=== PATIENT | female | born 1940 | race Caucasian/White ===

== ENCOUNTER 2020-11-22 17:32 | Emergency (ER) | payer OTHER, SELFPAY ==
--- NOTE | ~2020-11-22 | XR_ITS ---
EXAMINATION: XR CHEST CLINICAL INFORMATION: Upper respiratory tract infection COMPARISON: None TECHNIQUE: Frontal view of the chest was obtained. FINDINGS: The heart and pulmonary vessels appear normal. No infiltrates, effusions or lung masses are seen. There appears to have been resection of the distal end of the left clavicle. The right AC joint appears normal. XR/XR chest 1V IMPRESSION: Unremarkable examination. No acute intrathoracic disease.
--- NOTE | 2020-11-22 17:35 | ECG_ITS ---
Test Reason : WEAKNESS Blood Pressure : / mmHG Vent. Rate : 101 BPM Atrial Rate : 101 BPM P-R Int : 170 ms QRS Dur : 068 ms QT Int : 340 ms P-R-T Axes : 047 -03 065 degrees QTc Int : 440 ms Sinus tachycardia Otherwise normal ECG No previous ECGs available Referred By: Generic ED Physician Electronically Signed By:Serge Lindo
[2020-11-22 17:39] VITALS: BP 186/78; PULSE 114; RESP 16; TEMP 38.1; O2SAT 99
[2020-11-22 17:50] LABS: Glucose, Whole Blood 151 mg/dL (60-115)
--- NOTE | 2020-11-22 18:18 | ED.URI ---
HPI - URI/Sore Throat General Chief Complaint: Upper Respiratory Symptoms Stated Complaint: HBS - HBP Time Seen by Provider: 11/22/20 18:16 Source: patient Mode of arrival: ambulatory Limitations: no limitations History of Present Illness HPI Narrative: 80-year-old female recently traveled from [place] to the [facility] presents for upper respiratory symptoms, cough, medication refill, and elevated blood sugar. She presents with her daughter, and appears to be in no distress. MD elicited complaint: fever, cough, sore throat and nasal congestion Onset (ago): day(s) Consistency: constant Severity: moderate Description of mucous: clear and watery Able to tolerate fluids by mouth: Yes Exacerbating factors: nothing Context: sick contacts and recent travel Associated symptoms: fever, chills, nasal congestion and cough Treatments prior to arrival: none Related Data Previous Rx's Medication Instructions Recorded levothyroxine 25 mcg PO DAILY #30 cap 11/22/20 Allergies Allergy/AdvReac Type Severity Reaction Status Date / Time No Known Allergies Allergy Verified 11/22/20 18:00 Review of Systems Review of Systems: Constitutional: positive Fever, positive Chills, positive fatigue, positive Malaise ENT/Mouth: positive sore throat, positive runny nose Eyes: No Discharge Cardiovascular: No Chest Pain, No SOB Respiratory: No Cough, No Sputum, No Wheezing, No Smoke Exposure, No Dyspnea Gastrointestinal: No Nausea, No Vomiting, No Diarrhea Genitourinary: no irregular bleeding, No Dysuria, No Urinary Frequency, No Hematuria, No Urinary Incontinence, No Urgency, No Flank Pain, Musculoskeletal: positive Myalgia Skin: No rash Neuro: No Headache Yes all other systems are reviewed and are negative [facility] Past Medical History Attestation statement: The following information was validated with the patient. Source: old records reviewed Medical History Diabetes High cholesterol HTN (hypertension) Thyroid activity decreased Social History Social History Alcohol intake: never Smoked in Last 30 Days: No Use of substances other than those prescribed or required for medical reasons: No Advance Directives: No Advance Directives Information Provided: Yes Physical Exam Vital Signs: Vital Signs: Last Vital Signs Temp 100.6 F H 11/22/20 17:39 Pulse 92 11/22/20 20:00 Resp 18 11/22/20 20:00 BP 186/78 H 11/22/20 17:39 Pulse Ox 99 11/22/20 17:39 Body Mass Index 0.8 Appearance: Alert. Oriented X3. Mild distress. Febrile Eyes: Pupils equal, round and reactive to light. ENT: Pharynx normal. Neck: Normal inspection. Neck supple. CVS: Normal heart rate and rhythm. Pulses normal. Respiratory: No respiratory distress. Breath sounds normal. Abdomen: Soft and nontender. Skin: Skin warm and dry. Normal skin color. Normal skin turgor. Extremities: No lower extremity edema. Neuro: No motor deficit. No sensory deficit. Course Course Course Narrative: 80-year-old female presents with COVID like symptoms recent travel from [place]. Plan of care is to test for COVID-19, will rule out ACS. She is asking for medication refill, will order levothyroxine 25 mcg for her. She does not have covering primary care provider. Patient is COVID positive. Troponin is 0. Patient's family and patient verbalized understanding of state and Federal guidelines for social isolation. Patient is not hypoxic, even unlabored respirations, able to speak in full sentences. No longer febrile at the time of my reassessment, 99.1 oral, blood pressure 177/78, heart rate 87. MDM - URI/Sore Throat MDM Narrative Medical decision making narrative: COVID-19 Differential Diagnosis Differential diagnosis: Likely upper respiratory infection, sinusitis, viral infection, bronchitis, influenza and pharyngitis Medical Records Attestation: I reviewed the patient's medical records. Lab Data Attestation: I reviewed the patient's lab results. Result diagrams: 11/22/20 17:52 11/22/20 17:52 Labs: Lab Results 11/22/20 11/22/20 11/22/20 Range/Units 17:44 17:52 17:52 WBC 8.9 (4.8-10.8) X10*3/uL RBC 4.42 (4.20-5.50) X10*6/uL Hgb 13.0 (12.0-16.0) g/dl Hct 39.3 (37-47) % MCV 88.9 (80-98) fL MCH 29.4 (27.0-33.0) pg MCHC 33.1 (31.0-35.0) g/dl RDW 12.8 (11.0-16.0) % Plt Count 315 (160-400) X10*3/uL MPV 9.5 (9.4-12.3) fL Immature Gran % (Auto) 0.7 H (0.0-0.4) % Neut % (Auto) 65.8 (45-73) % Lymph % (Auto) 19.1 L (20-40) % Ward % (Auto) 13.6 H (2-11) % Eos % (Auto) 0.5 (0-4) % Baso % (Auto) 0.3 (0-2) % Lymph # (Auto) 1.7 (1.2-4.9) X10*3/uL Ward # (Auto) 1.2 (0.1-1.2) X10*3/uL Eos # (Auto) 0.0 (0.0-0.4) X10*3/uL Baso # (Auto) 0.0 (0.0-0.2) X10*3/uL Abs Immat Gran (auto) 0.06 H (0.00-0.03) X10*3/uL Absolute Neuts (auto) 5.8 (2.0-8.3) X10*3/uL Absolute Nucleated RBC 0.000 (0.0-0.012) X10*3/uL Nucleated RBC % (auto) 0.0 (0.0-0.2) /100WBC Sodium (135-145) mmol/L Potassium (3.3-5.1) mmol/L Chloride (96-108) mmol/L Carbon Dioxide (22-29) mmol/L Anion Gap (12-20) BUN (9-16) mg/dL Creatinine (0.5-1.4) mg/dL Estim Creat Clear Calc Estimated GFR POC Glucose 151 H (60-115) mg/dL Random Glucose (60-115) mg/dL Calcium (8.4-10.2) mg/dL Troponin I High Sens (<3.5-17.0) ng/L Coronavirus (PCR) POSITIVE A (Negative) Influenza Type A (PCR) NEGATIVE (Negative) Influenza Type B (PCR) NEGATIVE (Negative) RSV RNA Qual (PCR) NEGATIVE (Negative) 11/22/20 11/22/20 Range/Units 17:52 17:52 WBC (4.8-10.8) X10*3/uL RBC (4.20-5.50) X10*6/uL Hgb (12.0-16.0) g/dl Hct (37-47) % MCV (80-98) fL MCH (27.0-33.0) pg MCHC (31.0-35.0) g/dl RDW (11.0-16.0) % Plt Count (160-400) X10*3/uL MPV (9.4-12.3) fL Immature Gran % (Auto) (0.0-0.4) % Neut % (Auto) (45-73) % Lymph % (Auto) (20-40) % Ward % (Auto) (2-11) % Eos % (Auto) (0-4) % Baso % (Auto) (0-2) % Lymph # (Auto) (1.2-4.9) X10*3/uL Ward # (Auto) (0.1-1.2) X10*3/uL Eos # (Auto) (0.0-0.4) X10*3/uL Baso # (Auto) (0.0-0.2) X10*3/uL Abs Immat Gran (auto) (0.00-0.03) X10*3/uL Absolute Neuts (auto) (2.0-8.3) X10*3/uL Absolute Nucleated RBC (0.0-0.012) X10*3/uL Nucleated RBC % (auto) (0.0-0.2) /100WBC Sodium 133 L (135-145) mmol/L Potassium 3.9 (3.3-5.1) mmol/L Chloride 98 (96-108) mmol/L Carbon Dioxide 21 L (22-29) mmol/L Anion Gap 18 (12-20) BUN 12 (9-16) mg/dL Creatinine 0.78 (0.5-1.4) mg/dL Estim Creat Clear Calc 1.4 Estimated GFR > 60 POC Glucose (60-115) mg/dL Random Glucose 146 H (60-115) mg/dL Calcium 9.2 (8.4-10.2) mg/dL Troponin I High Sens < 3.5 (<3.5-17.0) ng/L Coronavirus (PCR) (Negative) Influenza Type A (PCR) (Negative) Influenza Type B (PCR) (Negative) RSV RNA Qual (PCR) (Negative) Imaging Data Chest x-ray: Attestation: I personally reviewed and interpreted this imaging study as follows: Radiologist's impression: XR CHEST CLINICAL INFORMATION: Upper respiratory tract infection COMPARISON: None TECHNIQUE: Frontal view of the chest was obtained. FINDINGS: The heart and pulmonary vessels appear normal. No infiltrates, effusions or lung masses are seen. There appears to have been resection of the distal end of the left clavicle. The right AC joint appears normal. XR/XR chest 1V IMPRESSION: Unremarkable examination. No acute intrathoracic disease. ECG Data Attestation: I personally reviewed and interpreted this ECG as follows: ECG interpretation date: 11/22/20 ECG interpretation time: 17:54 Interpretation: Ventricular rate 101, CA interval 170, QRS 68, QT 340, QTC 440 sinus tachycardia otherwise normal EKG, no prior EKGs available as patient has not been to this hospital before. Scores Heart Score History: -1- moderately suspicious ECG: -0- normal Age: -2- > or = 65 Risk factory: -1- 1 or 2 risk factors Troponin: -0- < or = normal limit Score: 4 Risk: 16.6% Discharge Plan Discharge Clinical Impression: COVID-19, Medication refill Patient Disposition: Home, Self-Care Instructions: Medicine Refill (ED), COVID-19 (Coronavirus Disease 2019) (ED) Additional Instructions: Se le evaluaron para detectar s?ntomas respiratorios superiores consistentes con COVID-19. Bain prueba covid fue positiva. Por favor, mantenga las directrices de aislamiento social seg?n las regulaciones estatales y federales. Bain solicitado wang recarga para levotiroxina. Lo envi? a tu farmacia. Por favor, elly un seguimiento con el m?dico de atenci?n primaria. Charly por elegir gay departamento de emergencias para bain evaluaci?n. Por favor, elly un seguimiento con el m?dico de atenci?n primaria seg?n sea necesario. Regrese al servicio de emergencias para cualquier s?ntoma nuevo, preocupante o que empeore. You were evaluated for upper respiratory symptoms consistent with COVID-19. Your COVID test was positive. Please maintain social isolation guidelines per State and Federal regulations. Your requested a refill for levothyroxine. I sent that to your pharmacy. Please follow-up with primary care physician. Thank you for choosing this emergency department for evaluation. Please follow-up with primary care physician as needed. Return to the emergency department for any new, concerning, or worsening symptoms. Prescriptions: New levothyroxine 25 mcg capsule 25 mcg PO DAILY Qty: 30 RF: 3 Interventions: ED Discharge Assessment Last Done: 11/22/20 21:15 Discharge Date/Time: 11/22/20 21:17
[2020-11-22 18:38] LABS: MANUAL DIFF FLAG NO
[2020-11-22 18:57] LABS: Basophils Percent Auto 0.3 % (0-2); Eosinophils Percent Auto 0.5 % (0-4); Hematocrit 39.3 % (37-47); Imm Gran Abs Auto 0.06 X10*3/uL (0.00-0.03); Imm Gran Pct Auto 0.7 % (0.0-0.4); Lymphocytes Absolute Auto 1.7 X10*3/uL (1.2-4.9); Lymphocytes Percent Auto 19.1 % (20-40); Mean Corpuscular HGB Conc 33.1 g/dl (31.0-35.0); Mean Corpuscular Hemoglobin 29.4 pg (27.0-33.0); Mean Corpuscular Volume 88.9 fL (80-98); Mean Platelet Volume 9.5 fL (9.4-12.3); Monocytes Absolute Auto 1.2 X10*3/uL (0.1-1.2); Monocytes Percent Auto 13.6 % (2-11); Neutrophils Absolute Auto 5.8 X10*3/uL (2.0-8.3); Neutrophils Percent Auto 65.8 % (45-73); Platelet Count 315 X10*3/uL (160-400); Red Blood Count 4.42 X10*6/uL (4.20-5.50); Red Cell Distribution Width 12.8 % (11.0-16.0); White Blood Count 8.9 X10*3/uL (4.8-10.8)
[2020-11-22 19:02] LABS: Anion Gap 18 (12-20); Blood Urea Nitrogen 12 mg/dL (9-16); Calcium 9.2 mg/dL (8.4-10.2); Carbon Dioxide 21 mmol/L (22-29); Chloride 98 mmol/L (96-108); Creatinine Clr Calc Pharmacy 1.4; Estimated Glomerular Filt Rate > 60; Glucose Random 146 mg/dL (60-115); Potassium 3.9 mmol/L (3.3-5.1); Sodium 133 mmol/L (135-145)
[2020-11-22 19:15] LABS: Influenza A PCR NEGATIVE (Negative); Influenza B PCR NEGATIVE (Negative); Resp Syncy Virus RNA Qual PCR NEGATIVE (Negative); SARS COV2 PCR INHOUSE POSITIVE (Negative)
[2020-11-22] MEDS: Acetaminophen 325 MG TABLET 650 MG PO (19:21)
[2020-11-22] MEDS: Levothyroxine Sodium 25 MCG TABLET PO (19:21)
--- NOTE | 2020-11-22 19:25 | PC.NURSE ---
Pt awake and alert, sitting up in bed withdaughter at bedside. Pt breathing equal and unlabored. Vitals stable on monitor. Pt medicated at this time with PO Tylenol and Synthroid as ordered. Pt with mild back pain at this time. No acute distress, will continue to monitor
[2020-11-22 19:49] LABS: Troponin-I High Sensitivity < 3.5 ng/L (<3.5-17.0)
[2020-11-22 20:00] VITALS: PULSE 92; RESP 18
== END 2020-11-22 21:17 | disposition home or self-care (01) ==
PROVIDERS: Nurse Practitioner Family; Emergency Provider Emergency Medicine Emergency Medical Services
DX: U07.1 COVID-19 (principal); R50.9 Fever, unspecified; Z76.0 Encounter for issue of repeat prescription; Z79.899 Other long term (current) drug therapy
CPT/HCPCS: 0241U; 36415; 71045; 80048; 82947; 84484; 85025; 93005; 99284

== ENCOUNTER 2021-01-11 12:07 | Inpatient (IN) | payer OTHER, SELFPAY ==
[2021-01-11] VITALS (12 sets, daily range): BP systolic 114–166; BP diastolic 45–106; PULSE 77–95; RESP 15–20; TEMP 36.3–37.4; O2SAT 95–100; BMI 24.2; BMI 24.8
--- NOTE | ~2021-01-11 | CT_ITS ---
EXAMINATION: CT ABDOMEN AND PELVIS WITH CONTRAST CLINICAL INFORMATION: Right lower quadrant pain. Rule out acute appendicitis. COMPARISON: None TECHNIQUE: Multidetector volumetric images were obtained from the superior aspect of the liver through the pubic symphysis following administration 85 mL of Omnipaque 350 intravenous contrast. Sagittal and coronal reformatted images were obtained on the technologist's workstation. Oral contrast: No This CT examination was performed using dose optimization techniques as appropriate, variously including the following: *Automated exposure control *Adjustment of mA and/or kV according to patient size (this includes techniques or standardized protocols for targeted exams where dose is matched to indication/reason for exam; i.e. extremities or head) *Use of iterative reconstruction technique DLP: 372 mGy-cm FINDINGS: LUNG BASES: The visualized lung bases are unremarkable. LIVER, GALLBLADDER, AND BILIARY TREE: The liver is normal in size, shape, and attenuation. No focal hepatic lesion or biliary ductal dilatation is present. The gallbladder is distended and appears unremarkable. PANCREAS: Unremarkable. SPLEEN: Unremarkable. ADRENAL GLANDS: Unremarkable. KIDNEYS AND URETERS: The kidneys are normal in size, shape, and attenuation. No hydronephrosis, hydroureter, or calculi seen. No perinephric stranding. There is a punctate 3 mm hypodensity upper pole right renal cortex likely tiny cyst. A there is a 5 mm nonenhancing cyst upper pole left kidney BLADDER: Unremarkable. GASTROINTESTINAL TRACT: There is scattered stool and gas seen throughout the colon without any significant distention. The small bowel loops are normal caliber. The ileocecal junction is normal. The appendix is dilated with intraluminal gas and stool within measuring 1.2 cm. There is freddy appendix fat stranding consistent with acute appendicitis. There is no extraluminal gas or collection seen to suspect any perforation or abscess. ABDOMINAL WALL: No significant hernia is appreciated. LYMPH NODES: Normal. VASCULAR: Unremarkable. PELVIC VISCERA: The uterus is retroverted and appears unremarkable. There is no free air or free fluid seen. OSSEOUS STRUCTURES: No lytic or sclerotic process. There is mild ventral spondylosis. CT/CT abdomen pelvis w con IMPRESSION: Nonperforated Acute Appendicitis. Mild constipation Bilateral tiny renal cyst.
[2021-01-11 13:13] LABS: MANUAL DIFF FLAG NO
[2021-01-11 13:14] LABS: Basophils Percent Auto 0.2 % (0-2); Eosinophils Absolute Auto 0.1 X10*3/uL (0.0-0.4); Eosinophils Percent Auto 0.4 % (0-4); Hematocrit 37.8 % (37-47); Hemoglobin 12.6 g/dl (12.0-16.0); Imm Gran Abs Auto 0.05 X10*3/uL (0.00-0.03); Imm Gran Pct Auto 0.3 % (0.0-0.4); Lymphocytes Absolute Auto 2.8 X10*3/uL (1.2-4.9); Lymphocytes Percent Auto 16.9 % (20-40); Mean Corpuscular HGB Conc 33.3 g/dl (31.0-35.0); Mean Corpuscular Hemoglobin 29.8 pg (27.0-33.0); Mean Corpuscular Volume 89.4 fL (80-98); Mean Platelet Volume 8.7 fL (9.4-12.3); Monocytes Percent Auto 5.9 % (2-11); Neutrophils Absolute Auto 12.6 X10*3/uL (2.0-8.3); Neutrophils Percent Auto 76.3 % (45-73); Platelet Count 312 X10*3/uL (160-400); Red Blood Count 4.23 X10*6/uL (4.20-5.50); Red Cell Distribution Width 13.3 % (11.0-16.0); White Blood Count 16.5 X10*3/uL (4.8-10.8)
--- NOTE | 2021-01-11 13:40 | ED_ITS ---
HPI - Abdominal Pain General Chief Complaint: Abdominal Pain Stated Complaint: LOWER RT ABD PAIN Time Seen by Provider: 01/11/21 13:32 Source: patient Mode of arrival: ambulatory Limitations: no limitations History of Present Illness HPI narrative: 80-year-old female with a past medical history of diabetes, hypertension, hyperlipidemia, hypothyroidism here with complaints of right-sided abdominal pain for 3 days. Patient told that she has pain in the right lower abdomen which radiates to the right flank with associated nausea. No urinary symptoms. No fevers or chills. No vomiting. No diarrhea or constipation. Related Data Home Medications Medication Instructions Recorded Confirmed hydrochlorothiazide 25 mg PO DAILY 01/11/21 01/11/21 latanoprost 1 drp OPHTHALMIC (EYE) DAILY 01/11/21 01/11/21 metformin 1,000 mg PO BID 01/11/21 01/11/21 metformin 500 mg PO BID 01/11/21 01/11/21 Previous Rx's Medication Instructions Recorded levothyroxine 25 mcg PO DAILY #30 cap 11/22/20 Allergies Allergy/AdvReac Type Severity Reaction Status Date / Time No Known Allergies Allergy Verified 01/11/21 12:13 Review of Systems Review of Systems Yes all other systems are reviewed and are negative Constitutional: Reports no additional constitutional complaints, Denies body ache(s), Denies chills, Denies fever(s), Denies headache(s) and Denies weakness Eyes: Reports no additional eye complaints and Denies change in vision Reports system reviewed and no additional complaints, except as documented, Denies dizziness, Denies headache(s), Denies nasal congestion, Denies nasal discharge and Denies neck pain Cardiovascular: Reports no additional cardiovascular complaints, Denies chest pain, Denies leg edema and Denies dyspnea Respiratory: Reports no additional respiratory complaints, Denies cough and Denies dyspnea Gastrointestinal: Reports no additional gastrointestinal complaints, Reports abdominal pain, Denies diarrhea, Reports nausea and Denies vomiting Genitourinary: Reports no additional female genitourinary complaints and Denies urinary incontinence Musculoskeletal: Reports no additional musculoskeletal complaints, Reports back pain, Denies arthralgias, Denies joint swelling, Denies neck pain, Denies numbness and Denies tingling Skin/Breast: Reports system reviewed and no additional complaints, except as docu and Denies rash Reports system reviewed and no additional complaints, except as documented, Denies Abnormal speech present, Denies dizziness, Denies headache(s), Denies numbness, Denies tingling and Denies weakness Physical Exam Vital Signs: Vital Signs: Last Vital Signs Temp 97.3 F 01/11/21 12:10 Pulse 93 01/11/21 17:37 Resp 16 01/11/21 17:37 BP 166/58 H 01/11/21 17:37 Pulse Ox 98 01/11/21 17:37 Body Mass Index 24.2 Const: General: cooperative, healthy appearing, comfortable and no acute distress Orientation/consciousness: patient oriented x3 Limitations: no limitations HENMT: Head: Yes normal to inspection Ears: hearing grossly normal bilater ally General nose exam: Normal external nose present Face and sinus: Yes normal facial exam Mouth: Normal oral and palatal mucosa present Throat: Yes posterior oropharynx normal Eyes: General: appearance normal, both eyes and all related structures Pupils: Equal, round and reactive pupils present Neck: Neck: Yes normal visual inspection Chest: Chest palpation & inspection: normal inspection of the chest Resp: Effort & Inspection: normal respiratory effort Auscultation: clear to auscultation bilaterally Cardio: Rate: regular rate Rhythm: regular rhythm Peripheral pulses: Peripheral pulses 2+ throughout GI: Inspection: Yes normal to inspection Palpation (GI): Soft to palpation and Tenderness to palpation present (GI) (Mild tenderness in the right lower quadrant with some guarding. No rebound) Auscultation: normal bowel sounds : General: Yes no CVA tenderness Back/Spine/Pelvis: Back: no CVA tenderness Thoracic/Lumbar Spine: thoracic and lumbar spine normal to inspection Skin: General skin exam: no rashes or lesions noted Neuro: General: patient oriented x3, no focal motor deficits and normal sensation to monofilament Cranial nerves: Yes Equal, round and reactive pupils present Cognition (Neuro): normal cognition Speech: No Abnormal speech present Gait exam (Neuro): Normal gait present Motor exam (neuro): 5/5 motor strength present throughout Extrem: General: Yes normal to inspection Course Course Course Narrative: 80-year-old female here with right lower abdomen pain which radiates to the right flank x3 days with associated nausea. Exam no overt CVA tenderness. She does have some guarding and tenderness to the right lower quadrant. Will need labs, UA, CT A/P. 1650-CT shows acute appendicitis. The patient has a leukocytosis with a shift. At this time infection is suspected. Antibiotics ordered. Call out to surgery to discuss 1800-Patient seen by Dr Coleman who accepted admission. MDM - Abdominal Pain MDM Narrative Medical decision making narrative: Renal colic, acute appendicitis, UTI, pyelonephritis Medical Records Attestation: I reviewed the patient's medical records. Lab Data Attestation: I reviewed the patient's lab results. Result diagrams: 01/11/21 13:08 01/11/21 13:08 Labs: Lab Results 01/11/21 01/11/21 01/11/21 Range/Units 13:08 13:08 13:30 WBC 16.5 H (4.8-10.8) X10*3/uL RBC 4.23 (4.20-5.50) X10*6/uL Hgb 12.6 (12.0-16.0) g/dl Hct 37.8 (37-47) % MCV 89.4 (80-98) fL MCH 29.8 (27.0-33.0) pg MCHC 33.3 (31.0-35.0) g/dl RDW 13.3 (11.0-16.0) % Plt Count 312 (160-400) X10*3/uL MPV 8.7 L (9.4-12.3) fL Immature Gran % (Auto) 0.3 (0.0-0.4) % Neut % (Auto) 76.3 H (45-73) % Lymph % (Auto) 16.9 L (20-40) % [place] % (Auto) 5.9 (2-11) % Eos % (Auto) 0.4 (0-4) % Baso % (Auto) 0.2 (0-2) % Lymph # (Auto) 2.8 (1.2-4.9) X10*3/uL [place] # (Auto) 1.0 (0.1-1.2) X10*3/uL Eos # (Auto) 0.1 (0.0-0.4) X10*3/uL Baso # (Auto) 0.0 (0.0-0.2) X10*3/uL Abs Immat Gran (auto) 0.05 H (0.00-0.03) X10*3/uL Absolute Neuts (auto) 12.6 H (2.0-8.3) X10*3/uL Absolute Nucleated RBC 0.000 (0.0-0.012) X10*3/uL Nucleated RBC % (auto) 0.0 (0.0-0.2) /100WBC Hold Blue Top Sodium 136 (135-145) mmol/L Potassium 4.1 (3.3-5.1) mmol/L Chloride 101 (96-108) mmol/L Carbon Dioxide 26 (22-29) mmol/L Anion Gap 13 (12-20) BUN 10 (9-16) mg/dL Creatinine 0.74 (0.5-1.4) mg/dL Estim Creat Clear Calc 45.6 Estimated GFR > 60 Random Glucose 126 H (60-115) mg/dL Lactic Acid (0.5-2.0) mmol/L Calcium 9.6 (8.4-10.2) mg/dL Total Bilirubin (0.0-1.0) mg/dL Direct Bilirubin (0.0-0.5) mg/dL AST (5-31) U/L ALT (0-31) U/L Alkaline Phosphatase (39-117) U/L Total Protein (6.5-8.0) g/dL Albumin (3.5-5.0) g/dL Urine Color YELLOW Urine Appearance CLEAR Urine pH 5.5 (5.0-8.0) Ur Specific [place] 1.010 (1.005-1.025) Urine Protein NEG (NEG-TRACE) MG/DL Urine Glucose (UA) NEG (NEG) MG/DL Urine Ketones NEG (NEG) MG/DL Urine Blood 1+ H (NEG) Urine Nitrite NEG (NEG) Ur Leukocyte Esterase NEG (NEG) Urine RBC 1-4 (0) /HPF Urine WBC 0 (0-4) /HPF Ur Squamous Epith Cells TRACE /LPF Urine Bacteria NONE /LPF COVID-19 (CIELO) (Negative) COVID-19 Clin Com 01/11/21 01/11/21 01/11/21 Range/Units 14:01 14:01 15:00 WBC (4.8-10.8) X10*3/uL RBC (4.20-5.50) X10*6/uL Hgb (12.0-16.0) g/dl Hct (37-47) % MCV (80-98) fL MCH (27.0-33.0) pg MCHC (31.0-35.0) g/dl RDW (11.0-16.0) % Plt Count (160-400) X10*3/uL MPV (9.4-12.3) fL Immature Gran % (Auto) (0.0-0.4) % Neut % (Auto) (45-73) % Lymph % (Auto) (20-40) % [place] % (Auto) (2-11) % Eos % (Auto) (0-4) % Baso % (Auto) (0-2) % Lymph # (Auto) (1.2-4.9) X10*3/uL [place] # (Auto) (0.1-1.2) X10*3/uL Eos # (Auto) (0.0-0.4) X10*3/uL Baso # (Auto) (0.0-0.2) X10*3/uL Abs Immat Gran (auto) (0.00-0.03) X10*3/uL Absolute Neuts (auto) (2.0-8.3) X10*3/uL Absolute Nucleated RBC (0.0-0.012) X10*3/uL Nucleated RBC % (auto) (0.0-0.2) /100WBC Hold Blue Top SEE NOTE Sodium (135-145) mmol/L Potassium (3.3-5.1) mmol/L Chloride (96-108) mmol/L Carbon Dioxide (22-29) mmol/L Anion Gap (12-20) BUN (9-16) mg/dL Creatinine (0.5-1.4) mg/dL Estim Creat Clear Calc Estimated GFR Random Glucose (60-115) mg/dL Lactic Acid 0.9 (0.5-2.0) mmol/L Calcium (8.4-10.2) mg/dL Total Bilirubin 0.9 (0.0-1.0) mg/dL Direct Bilirubin 0.4 (0.0-0.5) mg/dL AST 19 (5-31) U/L ALT 12 (0-31) U/L Alkaline Phosphatase 77 (39-117) U/L Total Protein 7.7 (6.5-8.0) g/dL Albumin 4.2 (3.5-5.0) g/dL Urine Color Urine Appearance Urine pH (5.0-8.0) Ur Specific [place] (1.005-1.025) Urine Protein (NEG-TRACE) MG/DL Urine Glucose (UA) (NEG) MG/DL Urine Ketones (NEG) MG/DL Urine Blood (NEG) Urine Nitrite (NEG) Ur Leukocyte Esterase (NEG) Urine RBC (0) /HPF Urine WBC (0-4) /HPF Ur Squamous Epith Cells /LPF Urine Bacteria /LPF COVID-19 (CIELO) (Negative) COVID-19 Clin Com 01/11/21 Range/Units 17:04 WBC (4.8-10.8) X10*3/uL RBC (4.20-5.50) X10*6/uL Hgb (12.0-16.0) g/dl Hct (37-47) % MCV (80-98) fL MCH (27.0-33.0) pg MCHC (31.0-35.0) g/dl RDW (11.0-16.0) % Plt Count (160-400) X10*3/uL MPV (9.4-12.3) fL Immature Gran % (Auto) (0.0-0.4) % Neut % (Auto) (45-73) % Lymph % (Auto) (20-40) % [place] % (Auto) (2-11) % Eos % (Auto) (0-4) % Baso % (Auto) (0-2) % Lymph # (Auto) (1.2-4.9) X10*3/uL [place] # (Auto) (0.1-1.2) X10*3/uL Eos # (Auto) (0.0-0.4) X10*3/uL Baso # (Auto) (0.0-0.2) X10*3/uL Abs Immat Gran (auto) (0.00-0.03) X10*3/uL Absolute Neuts (auto) (2.0-8.3) X10*3/uL Absolute Nucleated RBC (0.0-0.012) X10*3/uL Nucleated RBC % (auto) (0.0-0.2) /100WBC Hold Blue Top Sodium (135-145) mmol/L Potassium (3.3-5.1) mmol/L Chloride (96-108) mmol/L Carbon Dioxide (22-29) mmol/L Anion Gap (12-20) BUN (9-16) mg/dL Creatinine (0.5-1.4) mg/dL Estim Creat Clear Calc Estimated GFR Random Glucose (60-115) mg/dL Lactic Acid (0.5-2.0) mmol/L Calcium (8.4-10.2) mg/dL Total Bilirubin (0.0-1.0) mg/dL Direct Bilirubin (0.0-0.5) mg/dL AST (5-31) U/L ALT (0-31) U/L Alkaline Phosphatase (39-117) U/L Total Protein (6.5-8.0) g/dL Albumin (3.5-5.0) g/dL Urine Color Urine Appearance Urine pH (5.0-8.0) Ur Specific [place] (1.005-1.025) Urine Protein (NEG-TRACE) MG/DL Urine Glucose (UA) (NEG) MG/DL Urine Ketones (NEG) MG/DL Urine Blood (NEG) Urine Nitrite (NEG) Ur Leukocyte Esterase (NEG) Urine RBC (0) /HPF Urine WBC (0-4) /HPF Ur Squamous Epith Cells /LPF Urine Bacteria /LPF COVID-19 (CIELO) Negative (Negative) COVID-19 Clin Com See Note Imaging Data CT scan - abdomen: Attestation: I personally reviewed and interpreted this imaging study as follows: Radiologist's impression: [address] [id number] Scan ReportSigned Patient: Nisha Floyd#: [id number]: 1940Acct:[id number]/Sex: 80 / FADM Date: 01/11/21Loc: [address]: Ordering Physician: MIGUELITO HAQUE NP Date of Service: 01/11/21 Procedure(s): CT abdomen pelvis w con Accession Number(s): [id number] cc: SHABNAM,MIGUELITO [employer] DEVELOPER~ EXAMINATION: CT ABDOMEN AND PELVIS WITH CONTRAST CLINICAL INFORMATION: Right lower quadrant pain. Rule out acute appendicitis. COMPARISON: None TECHNIQUE: Multidetector volumetric images were obtained from the superior aspect of the liver through the pubic symphysis following administration 85 mL of Omnipaque 350 intravenous contrast. Sagittal and coronal reformatted images were obtained on the technologist's workstation. Oral contrast: No This CT examination was performed using dose optimization techniques as appropriate, variously including the following: *Automated exposure control *Adjustment of mA and/or kV according to patient size (this includes techniques or standardized protocols for targeted exams where dose is matched to indication/reason for exam; i.e. extremities or head) *Use of iterative reconstruction technique DLP: 372 mGy-cm FINDINGS: LUNG BASES: The visualized lung bases are unremarkable. LIVER, GALLBLADDER, AND BILIARY TREE: The liver is normal in size, shape, and attenuation. No focal hepatic lesion or biliary ductal dilatation is present. The gallbladder is distended and appears unremarkable. PANCREAS: Unremarkable. SPLEEN: Unremarkable. ADRENAL GLANDS: Unremarkable. KIDNEYS AND URETERS: The kidneys are normal in size, shape, and attenuation. No hydronephrosis, hydroureter, or calculi seen. No perinephric stranding. There is a punctate 3 mm hypodensity upper pole right renal cortex likely tiny cyst. A there is a 5 mm nonenhancing cyst upper pole left kidney BLADDER: Unremarkable. GASTROINTESTINAL TRACT: There is scattered stool and gas seen throughout the colon without any significant distention. The small bowel loops are normal caliber. The ileocecal junction is normal. The appendix is dilated with intraluminal gas and stool within measuring 1.2 cm. There is freddy appendix fat stranding consistent with acute appendicitis. There is no extraluminal gas or collection seen to suspect any perforation or abscess. ABDOMINAL WALL: No significant hernia is appreciated. LYMPH NODES: Normal. VASCULAR: Unremarkable. PELVIC VISCERA: The uterus is retroverted and appears unremarkable. There is no free air or free fluid seen. OSSEOUS STRUCTURES: No lytic or sclerotic process. There is mild ventral spondylosis. CT/CT abdomen pelvis w con IMPRESSION: Nonperforated Acute Appendicitis. Mild constipation Bilateral tiny renal cyst. Discharge Plan Discharge Clinical Impression: Acute appendicitis, Leukocytosis Patient Disposition: Admitted As Inpatient Prescriptions: No Action latanoprost 0.005 % Drops 1 drp OPHTHALMIC (EYE) DAILY RF: 0 metformin 500 mg Tablet 500 mg PO BID RF: 0 metformin 1,000 mg Tablet 1,000 mg PO BID RF: 0 hydrochlorothiazide 25 mg Tablet 25 mg PO DAILY RF: 0 levothyroxine 25 mcg capsule 25 mcg PO DAILY Qty: 30 RF: 3 PMFSH Past Medical History Attestation statement: The following information was validated with the patient. Source: old records reviewed and nursing notes reviewed Medical History (Updated 01/11/21 @ 18:39 by Miguelito Haque NP) COVID-19 Diabetes High cholesterol HTN (hypertension) Thyroid activity decreased Social History Social History Alcohol intake: never Advance Directives: Yes Advance Directives Information Provided: Yes Advance Directives on File: No
[2021-01-11 13:41] LABS: Glucose Urine UA NEG (NEG); Leukocyte Esterase Urine NEG (NEG); Nitrite Urine NEG (NEG); PH 5.5 (5.0-8.0); Urine Blood 1+ (NEG); Urine Ketones NEG (NEG); Urine Protein NEG (NEG-TRACE)
[2021-01-11 13:42] LABS: Appearance Urine CLEAR; Color Urine YELLOW
[2021-01-11 13:48] LABS: Anion Gap 13 (12-20); Blood Urea Nitrogen 10 mg/dL (9-16); Calcium 9.6 mg/dL (8.4-10.2); Carbon Dioxide 26 mmol/L (22-29); Chloride 101 mmol/L (96-108); Creatinine Clr Calc Pharmacy 45.6; Estimated Glomerular Filt Rate > 60; Glucose Random 126 mg/dL (60-115); Potassium 4.1 mmol/L (3.3-5.1); Sodium 136 mmol/L (135-145)
[2021-01-11 13:56] LABS: Squamous Epithelial Cell Urine TRACE /LPF; WBC Urine 0 /HPF (0-4)
[2021-01-11 14:29] LABS: Lactic Acid 0.9 mmol/L (0.5-2.0)
[2021-01-11 15:31] LABS: Alanine Aminotransferase 12 U/L (0-31); Albumin Level 4.2 g/dL (3.5-5.0); Alkaline Phosphatase 77 U/L (39-117); Aspartate Amino Transferase 19 U/L (5-31); Bilirubin Direct 0.4 mg/dL (0.0-0.5); Bilirubin Total 0.9 mg/dL (0.0-1.0); Total Protein 7.7 g/dL (6.5-8.0)
[2021-01-11] MEDS: iohexoL 350 MG/ML 100 ML INFUS..BTL IV (16:28)
[2021-01-11] MEDS: Piperacillin Sodium/Tazobactam 3.375 GM in 0.9 % Sodium Chloride 50 ML IV (17:11)
[2021-01-11 17:54] LABS: COVID-19 Test Negative (Negative); IDNOW Serial# 9DD0AD1C
--- NOTE | 2021-01-11 18:06 | PC.NURSE ---
GI at bedside.
--- NOTE | 2021-01-11 18:22 | PM.HPGS ---
History of Present Illness History of Present Illness Date of Service: 01/11/21 Chief complaint: LOWER RT ABD PAIN Narrative: Nisah Cross is a 80 year old female presenting with a 3 day history of abdominal pain beginning in a periumbilical region and radiating to the right lower quadrant and back. The pain has been increasing in severity and is associated with nausea without vomiting, and anorexia. She denies fever, chills, diarrhea, constipation. Her past history is significant for diabetes, hypertension, hyperlipidemia, hypothyroidism. She denies cough, or shortness of breath. She presented to the emergency department was noted to be tender in the right lower [place] [address] of the abdomen and pelvis revealed a thickened and inflamed appendix suggestive of acute appendicitis. No free air or abscess could be identified. She is admitted to the surgical service for management of acute appendicitis. Review of Systems Review of Systems: Yes all other systems are reviewed and are negative Constitutional: Constitutional: Denies chills, Denies fever(s) and Reports poor appetite ENT: Denies dysphagia Cardiovascular: Cardiovascular: Denies chest pain, Denies rapid heart rate, Denies irregular heart rhythm and Denies dyspnea on exertion Respiratory: Respiratory: Denies chest congestion, Denies cough, Denies excessive phlegm production, Denies pain with cough and Denies dyspnea on exertion Gastrointestinal: Gastrointestinal: Reports abdominal pain, Denies bloating, Denies hematochezia, Denies change in bowel habits, Denies coffee ground emesis, Denies dysphagia, Reports nausea and Denies vomiting Genitourinary: Genitourinary: Reports no additional female genitourinary complaints Neurologic: Reports system reviewed and no additional complaints, except as documented Allergic/Immunologic: Allergic/Immunologic: Reports no additional allergic/immunologic complaints [facility] Past Medical History Medical History (Updated 01/11/21 @ 18:29 by Catracho Reyes MD) COVID-19 Diabetes High cholesterol HTN (hypertension) Thyroid activity decreased Social History Social History Alcohol intake: never Advance Directives: Yes Advance Directives Information Provided: Yes Advance Directives on File: No Meds Allergies Allergy/AdvReac Type Severity Reaction Status Date / Time No Known Allergies Allergy Verified 01/11/21 12:13 Active Medications: Current Medications Generic Name Dose Route Start Last Admin Trade Name Freq PRN Reason Stop Dose Admin Pharmacy Consult 1 each 01/11/21 16:52 Consult Rx Perform Med Rec MISCELLANE ONCE PRN Consult order Home Medications Medication Instructions Recorded Confirmed Last Taken Type hydrochlorothiazide 25 mg PO DAILY 01/11/21 01/11/21 Unknown History latanoprost 1 drp OPHTHALMIC (EYE) DAILY 01/11/21 01/11/21 Unknown History metformin 1,000 mg PO BID 01/11/21 01/11/21 Unknown History metformin 500 mg PO BID 01/11/21 01/11/21 Unknown History Physical Exam Vital Signs: Vital Signs: Last Vital Signs Temp 97.3 F 01/11/21 12:10 Pulse 93 01/11/21 17:37 Resp 16 01/11/21 17:37 BP 166/58 H 01/11/21 17:37 Pulse Ox 98 01/11/21 17:37 Body Mass Index 24.2 Const: General: cooperative, healthy appearing, comfortable, no acute distress, well developed and alert Neck: Neck: Yes normal visual inspection Resp: Effort & Inspection: normal respiratory effort, no cough, no stridor and not tachypneic Auscultation: no rhonchi and no wheezes Cardio: Jugular venous distension: no JVD Rate: regular rate Rhythm: regular rhythm GI: Palpation (GI): Soft to palpation, Tenderness to palpation present (GI) in the RLQ and at McBurney's point, no guarding, not rigid, no masses and Rebound tenderness present Percussion: Yes normal to percussion Rectal Exam - Female: deferred Skin: General skin exam: no rashes or lesions noted Extrem: General: Yes no clubbing, cyanosis or edema Results Results Labs: Short CBC 01/11/21 Range/Units 13:08 WBC 16.5 H (4.8-10.8) X10*3/uL Hgb 12.6 (12.0-16.0) g/dl Hct 37.8 (37-47) % Plt Count 312 (160-400) X10*3/uL BMP 01/11/21 13:08 Sodium 136 Potassium 4.1 Chloride 101 Carbon Dioxide 26 BUN 10 Creatinine 0.74 Calcium 9.6 Liver Function 01/11/21 Range/Units 15:00 Total Bilirubin 0.9 (0.0-1.0) mg/dL Direct Bilirubin 0.4 (0.0-0.5) mg/dL AST 19 (5-31) U/L ALT 12 (0-31) U/L Alkaline Phosphatase 77 (39-117) U/L Albumin 4.2 (3.5-5.0) g/dL Urine 01/11/21 Range/Units 13:30 Urine Color YELLOW Urine Appearance CLEAR Urine pH 5.5 (5.0-8.0) Ur Specific [place] 1.010 (1.005-1.025) Urine Protein NEG (NEG-TRACE) MG/DL Urine Glucose (UA) NEG (NEG) MG/DL Assessment and Plan (1) Acute appendicitis: Status: Acute 80-year-old female patient presenting with 3 day history of abdominal pain now located in the right lower quadrant with tenderness on examination in the right lower quadrant in localized rebound. Laboratories revealed WBC of 16.[address] of the abdomen is consistent with acute appendicitis. I discussed the findings in detail with the patient and her daughter. Although sometimes is could be treated with antibiotics, because of the markedly elevated WBC in the findings on CT I would recommend a laparoscopic or possible open appendectomy. After discussion of the procedure, risks, and alternatives, she consents to a laparoscopic or possible open appendectomy. She will be added onto the operative schedule for today. Procedures Date of Service Date of Service: 01/11/21
--- NOTE | 2021-01-11 19:04 | HO.ANESPROP2 ---
FORM[facility]LY [facility], LATER [facility] Active Problems Active Problems: All Active Problems (Updated 01/11/21 @ 18:39 by Rebecca Solano NP) Leukocytosis (Acute) Acute appendicitis (Acute) Past Medical History Medical History COVID-19 Diabetes High cholesterol HTN (hypertension) Thyroid activity decreased Social History Social History Alcohol intake: never Advance Directives: Yes Advance Directives Information Provided: Yes Advance Directives on File: No Meds Allergies Allergy/AdvReac Type Severity Reaction Status Date / Time No Known Allergies Allergy Verified 01/11/21 12:13 Active Medications: Current Medications Generic Name Dose Route Start Last Admin Trade Name Freq PRN Reason Stop Dose Admin Lactated Ringer's 1,000 mls @ 100 mls/hr 01/11/21 18:45 Lr IVCONT .Q10H MONIKA Ondansetron HCl 4 mg 01/11/21 18:32 Ondansetron Hcl 4 Mg/2 Ml Vial IVPUSH QID PRN Nausea Pharmacy Consult 1 each 01/11/21 16:52 Consult Rx Perform Med Rec MISCELLANE ONCE PRN Consult order Home Medications Medication Instructions Recorded Confirmed Last Taken Type latanoprost 1 drp OPHTHALMIC (EYE) DAILY 01/11/21 01/11/21 01/11/21 History metformin 500 mg PO BID 01/11/21 01/11/21 01/11/21 History Exam Exam Date and Time: January 11, 2021 190 Height,Weight and Vital Signs: Height 4 ft 11 in Weight 54.431 kg Last Vital Signs Temp 97.3 F 01/11/21 12:10 Pulse 93 01/11/21 17:37 Resp 16 01/11/21 17:37 BP 166/58 H 01/11/21 17:37 Pulse Ox 98 01/11/21 17:37 Pertinent Lab Results Pertinent Lab Results: Laboratory Tests 01/11/21 01/11/21 01/11/21 13:08 13:08 13:30 WBC 16.5 H RBC 4.23 Hgb 12.6 Hct 37.8 MCV 89.4 MCH 29.8 MCHC 33.3 RDW 13.3 Plt Count 312 MPV 8.7 L Immature Gran % (Auto) 0.3 Neut % (Auto) 76.3 H Lymph % (Auto) 16.9 L [place] % (Auto) 5.9 Eos % (Auto) 0.4 Baso % (Auto) 0.2 Lymph # (Auto) 2.8 [place] # (Auto) 1.0 Eos # (Auto) 0.1 Baso # (Auto) 0.0 Abs Immat Gran (auto) 0.05 H Absolute Neuts (auto) 12.6 H Absolute Nucleated RBC 0.000 Nucleated RBC % (auto) 0.0 Hold Blue Top Sodium 136 Potassium 4.1 Chloride 101 Carbon Dioxide 26 Anion Gap 13 BUN 10 Creatinine 0.74 Estim Creat Clear Calc 45.6 Estimated GFR > 60 Random Glucose 126 H Lactic Acid Calcium 9.6 Total Bilirubin Direct Bilirubin AST ALT Alkaline Phosphatase Total Protein Albumin Urine Color YELLOW Urine Appearance CLEAR Urine pH 5.5 Ur Specific [place] 1.010 Urine Protein NEG Urine Glucose (UA) NEG Urine Ketones NEG Urine Blood 1+ H Urine Nitrite NEG Ur Leukocyte Esterase NEG Urine RBC 1-4 Urine WBC 0 Ur Squamous Epith Cells TRACE Urine Bacteria NONE COVID-19 (CIELO) COVID-[place] 01/11/21 01/11/21 01/11/21 14:01 14:01 15:00 WBC RBC Hgb Hct MCV MCH MCHC RDW Plt Count MPV Immature Gran % (Auto) Neut % (Auto) Lymph % (Auto) [place] % (Auto) Eos % (Auto) Baso % (Auto) Lymph # (Auto) [place] # (Auto) Eos # (Auto) Baso # (Auto) Abs Immat Gran (auto) Absolute Neuts (auto) Absolute Nucleated RBC Nucleated RBC % (auto) Hold Blue Top SEE NOTE Sodium Potassium Chloride Carbon Dioxide Anion Gap BUN Creatinine Estim Creat Clear Calc Estimated GFR Random Glucose Lactic Acid 0.9 Calcium Total Bilirubin 0.9 Direct Bilirubin 0.4 AST 19 ALT 12 Alkaline Phosphatase 77 Total Protein 7.7 Albumin 4.2 Urine Color Urine Appearance Urine pH Ur Specific [place] Urine Protein Urine Glucose (UA) Urine Ketones Urine Blood Urine Nitrite Ur Leukocyte Esterase Urine RBC Urine WBC Ur Squamous Epith Cells Urine Bacteria COVID-19 (CIELO) COVID[facility]th[facility] 01/11/21 17:04 WBC RBC Hgb Hct MCV MCH MCHC RDW Plt Count MPV Immature Gran % (Auto) Neut % (Auto) Lymph % (Auto) [place] % (Auto) Eos % (Auto) Baso % (Auto) Lymph # (Auto) [place] # (Auto) Eos # (Auto) Baso # (Auto) Abs Immat Gran (auto) Absolute Neuts (auto) Absolute Nucleated RBC Nucleated RBC % (auto) Hold Blue Top Sodium Potassium Chloride Carbon Dioxide Anion Gap BUN Creatinine Estim Creat Clear Calc Estimated GFR Random Glucose Lactic Acid Calcium Total Bilirubin Direct Bilirubin AST ALT Alkaline Phosphatase Total Protein Albumin Urine Color Urine Appearance Urine pH Ur Specific [place] Urine Protein Urine Glucose (UA) Urine Ketones Urine Blood Urine Nitrite Ur Leukocyte Esterase Urine RBC Urine WBC Ur Squamous Epith Cells Urine Bacteria COVID-19 (CIELO) Negative COVID-19 Clin Com See Note Airway Mallampati Class: II TM Dist: >3cm Neck ROM: Full Denture: Upper Heart: RRR Lungs: CTA
--- NOTE | 2021-01-11 19:35 | P.CONAN_ITS ---
[facility] Active Problems Active Problems: All Active Problems (Updated 01/11/21 @ 18:39 by Rebecca conklin NP) Leukocytosis (Acute) Acute appendicitis (Acute) Past Medical History Medical History COVID-19 Diabetes High cholesterol HTN (hypertension) Thyroid activity decreased Social History Social History Alcohol intake: never Meds Allergies Allergy/AdvReac Type Severity Reaction Status Date / Time No Known Allergies Allergy Verified 01/11/21 12:13 Home Medications Medication Instructions Recorded Confirmed Last Taken Type latanoprost 1 drp OPHTHALMIC (EYE) DAILY 01/11/21 01/11/21 01/11/21 History metformin 500 mg PO BID 01/11/21 01/11/21 01/11/21 History Exam Exam Date and Time: January 11, 20211934 Height,Weight and Vital Signs: Height 4 ft 11 in Weight 54.431 kg Last Vital Signs Temp 99.3 F 01/11/21 19:27 Pulse 95 01/11/21 19:27 Resp 20 01/11/21 19:27 BP 146/106 H 01/11/21 19:27 Pulse Ox 99 01/11/21 19:27 Pertinent Lab Results Pertinent Lab Results: Laboratory Tests 01/11/21 01/11/21 01/11/21 13:08 13:08 13:30 WBC 16.5 H RBC 4.23 Hgb 12.6 Hct 37.8 MCV 89.4 MCH 29.8 MCHC 33.3 RDW 13.3 Plt Count 312 MPV 8.7 L Immature Gran % (Auto) 0.3 Neut % (Auto) 76.3 H Lymph % (Auto) 16.9 L [place] % (Auto) 5.9 Eos % (Auto) 0.4 Baso % (Auto) 0.2 Lymph # (Auto) 2.8 [place] # (Auto) 1.0 Eos # (Auto) 0.1 Baso # (Auto) 0.0 Abs Immat Gran (auto) 0.05 H Absolute Neuts (auto) 12.6 H Absolute Nucleated RBC 0.000 Nucleated RBC % (auto) 0.0 Hold Blue Top Sodium 136 Potassium 4.1 Chloride 101 Carbon Dioxide 26 Anion Gap 13 BUN 10 Creatinine 0.74 Estim Creat Clear Calc 45.6 Estimated GFR > 60 Random Glucose 126 H Lactic Acid Calcium 9.6 Total Bilirubin Direct Bilirubin AST ALT Alkaline Phosphatase Total Protein Albumin Urine Color YELLOW Urine Appearance CLEAR Urine pH 5.5 Ur Specific [place] 1.010 Urine Protein NEG Urine Glucose (UA) NEG Urine Ketones NEG Urine Blood 1+ H Urine Nitrite NEG Ur Leukocyte Esterase NEG Urine RBC 1-4 Urine WBC 0 Ur Squamous Epith Cells TRACE Urine Bacteria NONE COVID-19 (CIELO) COVID-19 Clin Com 01/11/21 01/11/21 01/11/21 14:01 14:01 15:00 WBC RBC Hgb Hct MCV MCH MCHC RDW Plt Count MPV Immature Gran % (Auto) Neut % (Auto) Lymph % (Auto) [place] % (Auto) Eos % (Auto) Baso % (Auto) Lymph # (Auto) [place] # (Auto) Eos # (Auto) Baso # (Auto) Abs Immat Gran (auto) Absolute Neuts (auto) Absolute Nucleated RBC Nucleated RBC % (auto) Hold Blue Top SEE NOTE Sodium Potassium Chloride Carbon Dioxide Anion Gap BUN Creatinine Estim Creat Clear Calc Estimated GFR Random Glucose Lactic Acid 0.9 Calcium Total Bilirubin 0.9 Direct Bilirubin 0.4 AST 19 ALT 12 Alkaline Phosphatase 77 Total Protein 7.7 Albumin 4.2 Urine Color Urine Appearance Urine pH Ur Specific [place] Urine Protein Urine Glucose (UA) Urine Ketones Urine Blood Urine Nitrite Ur Leukocyte Esterase Urine RBC Urine WBC Ur Squamous Epith Cells Urine Bacteria COVID-19 (CIELO) COVID-19 Clin Com 01/11/21 17:04 WBC RBC Hgb Hct MCV MCH MCHC RDW Plt Count MPV Immature Gran % (Auto) Neut % (Auto) Lymph % (Auto) [place] % (Auto) Eos % (Auto) Baso % (Auto) Lymph # (Auto) [place] # (Auto) Eos # (Auto) Baso # (Auto) Abs Immat Gran (auto) Absolute Neuts (auto) Absolute Nucleated RBC Nucleated RBC % (auto) Hold Blue Top Sodium Potassium Chloride Carbon Dioxide Anion Gap BUN Creatinine Estim Creat Clear Calc Estimated GFR Random Glucose Lactic Acid Calcium Total Bilirubin Direct Bilirubin AST ALT Alkaline Phosphatase Total Protein Albumin Urine Color Urine Appearance Urine pH Ur Specific [place] Urine Protein Urine Glucose (UA) Urine Ketones Urine Blood Urine Nitrite Ur Leukocyte Esterase Urine RBC Urine WBC Ur Squamous Epith Cells Urine Bacteria COVID-19 (CIELO) Negative COVID-19 Clin Com See Note Airway Mallampati Class: II TM Dist: >3cm Loose/Missing/Broken Teeth: Yes and Upper
--- NOTE | 2021-01-11 20:37 | W.PM.OPN ---
Operative Note Operative Note Date of Service: 01/11/21 Narrative: Preoperative diagnosis: Acute appendicitis Postoperative diagnosis: Same Procedure: Laparoscopic appendectomy Surgeon: Catracho Reyes MD Customer Service Sales Associate:none Anesthesia: General endotracheal Indications for procedure: 80-year-old female with a 3 day history of abdominal pain in the right lower quadrant increasing in severity. She presents to the emergency department found to have tenderness in [place] [address] [place] of the abdomen and pelvis reveals a thickened appendix with surrounding inflammatory changes consistent with acute appendicitis. Operative findings: Markedly inflamed appendix located in the right lower quadrant without perforation. A small amount of turbid fluid was aspirated. Specimen: Appendix Estimated blood loss: 5 mL Complications: None Procedure details: Patient was brought to the OR and placed in a supine position. After administering general anesthesia the patient's abdomen was prepped with ChloraPrep and draped in a sterile fashion. A surgical time-out was called and consent confirmed. Patient received preoperative antibiotics and Venodyne boots were in place. Local anesthesia consisting of 0.25% Sensorcaine with epinephrine was infiltrated in periumbilical region. A 5 mm incision was made below the umbilicus and carried down through subcutaneous tissue. A Veress needle was then inserted while elevating abdominal cavity with towel clips. After a positive drop test the abdomen was insufflated to a pressure of 15 mm of mercury. The Veress needle was removed and a 5 mm trocar inserted. The camera was then inserted in the abdomen explored. A 2nd 5 mm trocars placed in the lower midline. A 12 mm trocar was then placed in the left lower quadrant. The patient was then placed in a Trendelenburg position and rotated to the left. The appendix was identified in the right lower quadrant and brought up using blunt dissecting clamps. The mesentery of the appendix was then divided using the LigaSure. The appendiceal artery was cauterized and divided using the LigaSure. Dissection was continued down to the base of the cecum. An Endo-YUVAL stapler with a purple reload was then used to divide the appendix at the base with the cecum. The appendix was then placed in Endo-Catch bag and brought out through the left lower quadrant incision. The abdomen was then irrigated with saline solution and suctioned dry. Wounds were checked for hemostasis. CO2 was then evacuated from the abdominal cavity and all trocars removed. Fascia was closed in the left lower quadrant incision using a [id number] 0 Polysorb suture. Skin was closed at all incisions using a subcuticular 4-0 Polysorb suture. Steri-Strips 2 x 2 gauze and Tegaderm were then applied. The patient tolerated the procedure well. Sponge, instrument, needle counts reported as correct. The patient was transferred to PACU in stable condition.
[2021-01-11] MEDS: Lactated Ringers 1,000 ML 100 ML IVCONT (21:50)
[2021-01-11] MEDS: 0.9 % Sodium Chloride Flush 3 ML SYRINGE IVFLUSH (21:51)
[2021-01-11 22:02] LABS: Glucose, Whole Blood 151 mg/dL (60-115)
[2021-01-12 03:13] VITALS: BP 118/57; PULSE 81; RESP 18; TEMP 36.6; O2SAT 97
[2021-01-12 05:08] LABS: Basophils Percent Auto 0.1 % (0-2); Hemoglobin 11.6 g/dl (12.0-16.0); Imm Gran Abs Auto 0.06 X10*3/uL (0.00-0.03); Imm Gran Pct Auto 0.5 % (0.0-0.4); Lymphocytes Absolute Auto 0.9 X10*3/uL (1.2-4.9); Lymphocytes Percent Auto 6.5 % (20-40); MANUAL DIFF FLAG SCAN; Mean Corpuscular HGB Conc 33.1 g/dl (31.0-35.0); Mean Corpuscular Hemoglobin 29.7 pg (27.0-33.0); Mean Corpuscular Volume 89.5 fL (80-98); Mean Platelet Volume 9.2 fL (9.4-12.3); Monocytes Absolute Auto 0.1 X10*3/uL (0.1-1.2); Monocytes Percent Auto 1.1 % (2-11); Neutrophils Absolute Auto 12.2 X10*3/uL (2.0-8.3); Neutrophils Percent Auto 91.8 % (45-73); Platelet Count 296 X10*3/uL (160-400); Red Blood Count 3.91 X10*6/uL (4.20-5.50); Red Cell Distribution Width 13.2 % (11.0-16.0); SCAN SMEAR FLAG 1; White Blood Count 13.2 X10*3/uL (4.8-10.8)
[2021-01-12 05:29] LABS: SLIDE REVIEW VERIFIED
[2021-01-12 07:06] LABS: Glucose, Whole Blood 135 mg/dL (60-115)
[2021-01-12] MEDS: Lactated Ringers 1,000 ML 100 ML IVCONT (07:09)
[2021-01-12 07:47] VITALS: BP 144/67; PULSE 71; RESP 17; TEMP 36.2; O2SAT 98
--- NOTE | 2021-01-12 08:15 | PM.PNGS ---
Subjective Subjective Date of Service: 01/12/21 Interval history: Pod 1 status post laparoscopic appendectomy. Patient is awake and alert with no new complaints. She is awaiting breakfast. Physical Exam Vital Signs: Vital Signs: Last Vital Signs Temp 97.1 F 01/12/21 07:47 Pulse 71 01/12/21 07:47 Resp 17 01/12/21 07:47 BP 144/67 H 01/12/21 07:47 Pulse Ox 98 01/12/21 07:47 Body Mass Index 24.8 Resp: Effort & Inspection: normal respiratory effort GI: Other: Soft, nondistended, incisions are clean, dry, and intact without redness or discharge Skin: Other: Warm, dry, no rash Extrem: Other: No edema Progress Note: A&P Assessment and plan (1) Acute appendicitis: Status: Acute Assessment and Plan: Patient is now postoperative day 1 status post laparoscopic appendectomy. She tolerated the procedure well and remained stable postoperatively. She will be starting her regular diet this morning and I will check back to see if she is ready for discharge later today. Fall Risk Details Current Medications: Current Medications Generic Name Dose Route Start Last Admin Trade Name Freq PRN Reason Stop Dose Admin Acetaminophen 650 mg 01/11/21 20:59 Acetaminophen 325 Mg Tablet PO Q6H PRN Pain, Mild (Pain Scale 1-3) Lactated Ringer's 1,000 mls @ 100 mls/hr 01/11/21 18:45 01/12/21 07:09 Lr IVCONT 100 mls/hr .Q10H MONIKA Administration Insulin Human Lispro 0 unit 01/11/21 21:45 01/11/21 22:03 Insulin Lispro 100 Unit/Ml 3 Ml Vial SUBCUT 01/12/21 21:45 Not Given QIDACHS MONIKA Protocol Morphine Sulfate 2 mg 01/11/21 21:45 Morphine Sulfate 2 Mg/Ml Cartridge IVPUSH Q3H PRN Pain, Severe (Pain Scale 7-10) Ondansetron HCl 4 mg 01/11/21 18:32 Ondansetron Hcl 4 Mg/2 Ml Vial IVPUSH QID PRN Nausea Oxycodone HCl 5 mg 01/11/21 21:45 Oxycodone Hcl Immed Release 5 Mg Tablet PO Q6H PRN Pain, Moderate (Pain Scale 4-6 Pharmacy Consult 1 each 01/11/21 16:52 Consult Rx Perform Med Rec MISCELLANE ONCE PRN Consult order Sodium Chloride 3 ml 01/12/21 00:00 01/11/21 21:51 0.9 % Sodium Chloride Flush 3 Ml Syringe IVFLUSH 3 ml QSHIFT MONIKA Administration Temazepam 15 mg 01/11/21 21:45 Temazepam 15 Mg Capsule PO BEDTIME PRN Insomnia Time Spent With Patient Time: Total time spent is greater than 50% in coordination of care (as documented) at patient's floor/unit and/or counseling patient: Time with patient: 15 - 24 minutes Procedures Date of Service Date of Service: 01/12/21
[2021-01-12] MEDS: 0.9 % Sodium Chloride Flush 3 ML SYRINGE IVFLUSH (08:50)
[2021-01-12 11:19] LABS: Glucose, Whole Blood 230 mg/dL (60-115)
[2021-01-12] MEDS: Insulin Lispro 100 UNIT/ML 3 ML VIAL SUBCUT (11:27)
[2021-01-12 11:32] VITALS: BP 124/58; PULSE 67; RESP 17; TEMP 36.8; O2SAT 97
--- NOTE | 2021-01-12 12:12 | MHC.CM.PN ---
CM spoke with patient's son Filemon [phone] who states his mom is visiting from [place] and will be returning there on 02/17. Patient is staying with filemon and is independent. Patient does not have a HCP nor a PCP here but does in [place]. Discussed discharge plan, back to Filemon's house no services. Filemon will be able to provide transport. CM will continue to follow for discharge needs.
--- NOTE | 2021-01-12 12:40 | P.DS_ITS ---
DS: Providers Provider Date of Service: 01/12/21 Date of admission: 01/11/21 19:39 Date of discharge: 01/12/21 Primary care physician: [facility] Admitting clinician: Catracho Reyes Discharging clinician: Catracho Reyes DS: Diagnosis Discharge Diagnosis (1) Acute appendicitis: Status: Acute DS: Medications Discharge Medications Home Medications: Home Medications Medication Instructions Recorded Confirmed latanoprost 1 drp OPHTHALMIC (EYE) DAILY 01/11/21 01/11/21 metformin 500 mg PO BID 01/11/21 01/11/21 Previous Rx's Medication Instructions Recorded levothyroxine 25 mcg PO DAILY #30 cap 11/22/20 oxycodone 5 mg PO Q6H PRN #14 tab 01/12/21 DS: Summary Hospital Course Hospital Course: 80-year-old female patient presenting with complaints of abdominal pain in the right lower quadrant of 3 days duration. She subsequently presented to the emergency department and was noted to be tender in the right lower quadrant. Laboratory [place] [address] of the abdomen and pelvis was obtained which revealed thickened and inflamed appendix consistent with acute appendicitis. Patient was evaluated by General surgery. The decision was made to proceed to a laparoscopic or possible open appendectomy. She was subsequently taken to the operating room on 01/11/2021 for a laparoscopic appendectomy. Operative findings confirmed acute appendicitis. Although there was some turbid fluid there is no evidence of a perforation. On postoperative day 1 the patient was found to be awake and alert with no significant abdominal pain other than incisional pain. She tolerated a regular diet without nausea or vomiting. She denied fever or chills. Repeat laboratories revealed WBC of 13 K. Patient will be discharged to home. She should follow up in the office in approximately 1 week. She should avoid lifting greater than 10 lb for the next 2 weeks. She may resume a regular diet. She should call for fever, chills, nausea, vomiting, or other concerns. Time Spent with Patient Time attestation: Total time spent providing and/or coordinating discharge services: Discharge coordination time: Less than 30 minutes Quality: Stroke Does the patient have a stroke diagnosis?: No Physical Exam Vital Signs: Vital Signs: Last Vital Signs Temp 98.3 F 01/12/21 11:32 Pulse 67 01/12/21 11:32 Resp 17 01/12/21 11:32 BP 124/58 L 01/12/21 11:32 Pulse Ox 97 01/12/21 11:32 Body Mass Index 24.8 Resp Effort & Inspection: normal respiratory effort GI Other: Soft, nondistended, incisions are clean, dry, and intact without redness or discharge Skin Other: Warm, dry, no rash Extrem Other: No edema DS: Data Data Completed and Pending Pending studies at discharge: Pending at discharge 01/11/21 20:14 Surgical [PTH] Routine Labs on day of discharge: Laboratory Results - last 24 hr 01/11/21 01/11/21 01/11/21 13:08 13:08 13:30 WBC 16.5 H RBC 4.23 Hgb 12.6 Hct 37.8 MCV 89.4 MCH 29.8 MCHC 33.3 RDW 13.3 Plt Count 312 MPV 8.7 L Immature Gran % (Auto) 0.3 Neut % (Auto) 76.3 H Lymph % (Auto) 16.9 L [place] % (Auto) 5.9 Eos % (Auto) 0.4 Baso % (Auto) 0.2 Lymph # (Auto) 2.8 [place] # (Auto) 1.0 Eos # (Auto) 0.1 Baso # (Auto) 0.0 Abs Immat Gran (auto) 0.05 H Absolute Neuts (auto) 12.6 H Absolute Nucleated RBC 0.000 Nucleated RBC % (auto) 0.0 Smear Tech's Comments Hold Blue Top Sodium 136 Potassium 4.1 Chloride 101 Carbon Dioxide 26 Anion Gap 13 BUN 10 Creatinine 0.74 Estim Creat Clear Calc 45.6 Estimated GFR > 60 POC Glucose Random Glucose 126 H Lactic Acid Calcium 9.6 Total Bilirubin Direct Bilirubin AST ALT Alkaline Phosphatase Total Protein Albumin Urine Color YELLOW Urine Appearance CLEAR Urine pH 5.5 Ur Specific [place] 1.010 Urine Protein NEG Urine Glucose (UA) NEG Urine Ketones NEG Urine Blood 1+ H Urine Nitrite NEG Ur Leukocyte Esterase NEG Urine RBC 1-4 Urine WBC 0 Ur Squamous Epith Cells TRACE Urine Bacteria NONE COVID-19 (CIELO) COVID-19 Clin Com 01/11/21 01/11/21 01/11/21 14:01 14:01 15:00 WBC RBC Hgb Hct MCV MCH MCHC RDW Plt Count MPV Immature Gran % (Auto) Neut % (Auto) Lymph % (Auto) [place] % (Auto) Eos % (Auto) Baso % (Auto) Lymph # (Auto) [place] # (Auto) Eos # (Auto) Baso # (Auto) Abs Immat Gran (auto) Absolute Neuts (auto) Absolute Nucleated RBC Nucleated RBC % (auto) Smear Tech's Comments Hold Blue Top SEE NOTE Sodium Potassium Chloride Carbon Dioxide Anion Gap BUN Creatinine Estim Creat Clear Calc Estimated GFR POC Glucose Random Glucose Lactic Acid 0.9 Calcium Total Bilirubin 0.9 Direct Bilirubin 0.4 AST 19 ALT 12 Alkaline Phosphatase 77 Total Protein 7.7 Albumin 4.2 Urine Color Urine Appearance Urine pH Ur Specific [place] Urine Protein Urine Glucose (UA) Urine Ketones Urine Blood Urine Nitrite Ur Leukocyte Esterase Urine RBC Urine WBC Ur Squamous Epith Cells Urine Bacteria COVID-19 (CIELO) [facility] 01/11/21 01/11/21 01/12/21 17:04 21:57 04:15 WBC 13.2 H RBC 3.91 L Hgb 11.6 L Hct 35.0 L MCV 89.5 MCH 29.7 MCHC 33.1 RDW 13.2 Plt Count 296 MPV 9.2 L Immature Gran % (Auto) 0.5 H Neut % (Auto) 91.8 H Lymph % (Auto) 6.5 L [place] % (Auto) 1.1 L Eos % (Auto) 0.0 Baso % (Auto) 0.1 Lymph # (Auto) 0.9 L [place] # (Auto) 0.1 Eos # (Auto) 0.0 Baso # (Auto) 0.0 Abs Immat Gran (auto) 0.06 H Absolute Neuts (auto) 12.2 H Absolute Nucleated RBC 0.000 Nucleated RBC % (auto) 0.0 Smear Tech's Comments VERIFIED Hold Blue Top Sodium Potassium Chloride Carbon Dioxide Anion Gap BUN Creatinine Estim Creat Clear Calc Estimated GFR POC Glucose 151 H Random Glucose Lactic Acid Calcium Total Bilirubin Direct Bilirubin AST ALT Alkaline Phosphatase Total Protein Albumin Urine Color Urine Appearance Urine pH Ur Specific [place] Urine Protein Urine Glucose (UA) Urine Ketones Urine Blood Urine Nitrite Ur Leukocyte Esterase Urine RBC Urine WBC Ur Squamous Epith Cells Urine Bacteria COVID-19 (CIELO) Negative [place] See Note 01/12/21 01/12/21 06:57 11:15 WBC RBC Hgb Hct MCV MCH MCHC RDW Plt Count MPV Immature Gran % (Auto) Neut % (Auto) Lymph % (Auto) [place] % (Auto) Eos % (Auto) Baso % (Auto) Lymph # (Auto) [place] # (Auto) Eos # (Auto) Baso # (Auto) Abs Immat Gran (auto) Absolute Neuts (auto) Absolute Nucleated RBC Nucleated RBC % (auto) Smear Tech's Comments Hold Blue Top Sodium Potassium Chloride Carbon Dioxide Anion Gap BUN Creatinine Estim Creat Clear Calc Estimated GFR POC Glucose 135 H 230 H Random Glucose Lactic Acid Calcium Total Bilirubin Direct Bilirubin AST ALT Alkaline Phosphatase Total Protein Albumin Urine Color Urine Appearance Urine pH Ur Specific [place] Urine Protein Urine Glucose (UA) Urine Ketones Urine Blood Urine Nitrite Ur Leukocyte Esterase Urine RBC Urine WBC Ur Squamous Epith Cells Urine Bacteria COVID-19 (CIELO) COVID-19 Clin Com Discharge Plan Discharge Patient Disposition: Home, Self-Care Discharge Diagnosis: Acute appendicitis Referrals: Catracho Reyes MD [Physician] - 1 Week Physician,None [Primary Care Provider] - 1 Week Discharge Medications: New oxycodone 5 mg tablet 5 mg PO Q6H PRN (Reason: pain) Qty: 14 RF: 0 Continued latanoprost 0.005 % Drops 1 drp OPHTHALMIC (EYE) DAILY RF: 0 metformin 500 mg Tablet 500 mg PO BID RF: 0 levothyroxine 25 mcg capsule 25 mcg PO DAILY Qty: 30 RF: 3 Discharge Orders: Discharge Order (Routine); Ordered 01/12/21 Ordered By: Catracho Reyes Diet: advance to usual diet Activity on Discharge: No heavy lifting Stand Alone Forms: Patient Portal Discharge page Print Language: Dominican Activity Restrictions/Additional Instructions: May resume a regular diet No lifting greater than 10 lb for 2 weeks May take a stool softener if no bowel movement after 2-3 days. May remove dressing in 2 days. May shower Follow-up in the office in 1 week. Care Plan Goals: Return to normal diet and normal activity Health Concerns: Acute appendicitis Plan of Treatment: Laparoscopic appendectomy performed on 01/11/2021 Assessment: Acute appendicitis
--- NOTE | 2021-01-12 12:40 | MHC.CM.PN ---
Patient will be discharged home today no services. Rafi Colbert will provide transport.
--- NOTE | 2021-01-12 13:35 | HO.POSTANES ---
Post Anesthesia Evaluation Post Anesthesia Evaluation Vital Signs: Vital Signs Temp Pulse Resp BP Pulse Ox 01/12/21 11:32 98.3 F 67 17 124/58 L 97 01/12/21 07:47 97.1 F 71 17 144/67 H 98 01/12/21 03:13 97.8 F 81 18 118/57 L 97 Anesthesia: General Endotracheal-GETA Mental Status: Awake Pain Control: Satisfactory Nausea/Vomiting: None Hydration: Adequate Anesthesia-Related Issues: No Anes. Related Issues
== END 2021-01-12 14:42 | disposition home or self-care (01) | DRG 343 ==
LOC: HO.ED 18:39 → HO.IMC 20:17
PROVIDERS: Nurse Practitioner Family; Admitting Provider Surgery; Emergency Provider Emergency Medicine Emergency Medical Services; Visit Provider Surgery
PROC: 0DTJ4ZZ Resection of Appendix, Percutaneous Endoscopic Approach (ICD-10-PCS; CPT 44970; principal; 2021-01-11 19:00)
DX: K35.80 Unspecified acute appendicitis (principal); E78.5 Hyperlipidemia, unspecified; I10 Essential (primary) hypertension; Z20.822 Contact with and (suspected) exposure to COVID-19; Z79.84 Long term (current) use of oral hypoglycemic drugs; Z79.890 Hormone replacement therapy; Z79.899 Other long term (current) drug therapy
CPT/HCPCS: 36415; 74177; 80048; 80076; 81001; 82947; 83605; 85025; 87040; 87635; 88304; 96365; 99024; 99285; J1100; J2405; J2543; J3010; Q9967